=== PATIENT | male | born 1970 | race African-American/Black ===

== ENCOUNTER 2018-08-15 03:47 | Inpatient (IN) | payer OTHER ==
[~2018-08-15] VITALS: Ht 167.6 cm; Wt 121.6 kg
[2018-08-15] MEDS ORDERED: PILOCARPINE HCL 2% OPHTH DROPS 15ML RIGHTEYE STA (05:24)
[2018-08-15] MEDS ORDERED: TIMOLOL MALEATE 0.5% OPHTH DROPS 5ML RIGHTEYE STA (05:24)
[2018-08-15] MEDS ORDERED: OXYCODONE HCL/ACETAMINOPHEN 5/325MG TABLET PO ONE (05:45)
[2018-08-15 05:48] LABS: BASOPHILS % 0.7 % (0.0-2.0); EOSINOPHILS % 4.3 % (0.0-5.0); HEMATOCRIT. 39.4 % (42.0-52.0); HEMOGLOBIN. 12.9 g/dL (14.0-18.0); LYMPHOCYTES % 13.3 % (20.0-50.0); MEAN CORPUSCULAR HEMOGLOBIN 27.6 pg (28.0-32.0); MEAN CORPUSCULAR VOLUME 83.9 fL (80.0-94.0); MEAN PLATELET VOLUME 7.9 fl (7.4-10.4); MONOCYTES % 7.1 % (2.0-8.0); NEUTROPHILS % 74.6 % (40.0-76.0); PLATELET 308 x1000/uL (130-400); RED BLOOD CELL COUNT 4.69 mill/uL (4.7-6.1); RED CELL DISTRIBUTION WIDTH 15.3 % (11.6-14.6)
[2018-08-15 05:50] LABS: CHLORIDE 103 mEq/L (98-107)
[2018-08-15] MEDS ORDERED: ACETAZOLAMIDE SODIUM 500MG/VIAL IV ONE (06:15)
[2018-08-15] MEDS ORDERED: HYDRALAZINE 20MG/ML VIAL IV ONE (08:30)
[2018-08-15] MEDS ORDERED: MORPHINE SULFATE 2 MG/ML CPJ (NOT FOR IM USE) IV PRN (08:45)
[2018-08-15] MEDS ORDERED: GUAIFENESIN 200MG/10ML SUGAR FREE UDC PO PRN (08:45)
[2018-08-15] MEDS ORDERED: DOCUSATE SODIUM 100MG CAPSULE PO PRN (08:45)
[2018-08-15] MEDS ORDERED: DIPHENHYDRAMINE 50MG/ML VIAL IV PRN (08:45)
[2018-08-15] MEDS ORDERED: IPRATROPIUM/ALBUTEROL 0.5-3(2.5)MG/3ML NEB INH PRN (08:45)
[2018-08-15] MEDS ORDERED: LORAZEPAM 2MG/ML CPJ IV PRN (08:45)
[2018-08-15] MEDS ORDERED: ONDANSETRON HCL 4MG/2ML INJ IV PRN (08:45)
[2018-08-15] MEDS ORDERED: NA PHOS,M-B/NA PHOS,DI-BA ENEMA 118ML PR PRN (08:45)
[2018-08-15] MEDS ORDERED: MAGNESIUM/ALUMINUM HYDROXIDE/SIMETHICONE 30ML UDC PO PRN (08:45)
[2018-08-15 12:15] VITALS: BP 185/109
[2018-08-15 12:20] VITALS: BP 185/109
[2018-08-15 12:44] LABS: PHOSPHORUS 4.7 mg/dL (2.5-4.9)
[2018-08-15] MEDS: CLONIDINE 0.1MG TABLET PO PRN (13:23)
[2018-08-15 14:00] VITALS: BP 176/96
[2018-08-15] MEDS: SODIUM CHLORIDE 0.45% 1,000 ML IV SCH (14:57)
[2018-08-15 16:23] VITALS: BP 126/70
[2018-08-15 20:00] VITALS: BP 150/74
[2018-08-15 20:12] LABS: CLARITY URINE CLEAR (CLEAR); COLOR URINE YELLOW (YELLOW); KETONES URINE NEGATIVE (NEGATIVE); LEUKOCYTE ESTERASE URINE NEGATIVE (NEGATIVE); NITRITE URINE NEGATIVE (NEGATIVE); OCCULT BLOOD URINE NEGATIVE (NEGATIVE); PH URINE 7.5 (4.5-8.0); PROTEIN URINE 1+ (NEGATIVE); SPECIFIC GRAVITY URINE 1.008 (1.005-1.030); UROBILINOGEN URINE 0.2 E.U./dL (0.2-1.0)
[2018-08-15] MEDS: HYDROCODONE/ACETAMINOPHEN 5/325MG TABLET PO PRN (21:47)
[2018-08-16] VITALS (7 sets, daily range): BP systolic 129–224; BP diastolic 63–130
[2018-08-16] MEDS: CLONIDINE 0.1MG TABLET PO PRN ×3 (00:24→20:14)
[2018-08-16] MEDS: SODIUM CHLORIDE 0.45% 1,000 ML IV SCH (00:24)
[2018-08-16 06:15] LABS: BASOPHILS % 0.8 % (0.0-2.0); EOSINOPHILS % 4.2 % (0.0-5.0); HEMATOCRIT. 38.3 % (42.0-52.0); HEMOGLOBIN. 12.3 g/dL (14.0-18.0); LYMPHOCYTES % 17.8 % (20.0-50.0); MEAN CORPUSCULAR HEMOGLOBIN 27.4 pg (28.0-32.0); MEAN CORPUSCULAR VOLUME 85.6 fL (80.0-94.0); MEAN PLATELET VOLUME 8.1 fl (7.4-10.4); MONOCYTES % 9.1 % (2.0-8.0); NEUTROPHILS % 68.1 % (40.0-76.0); PLATELET 305 x1000/uL (130-400); RED BLOOD CELL COUNT 4.48 mill/uL (4.7-6.1); RED CELL DISTRIBUTION WIDTH 15.7 % (11.6-14.6)
[2018-08-16 06:48] LABS: CHLORIDE 106 mEq/L (98-107)
[2018-08-16 06:54] LABS: HDL CHOLESTEROL 38 mg/dL (40-59); LDL CHOLESTEROL 130 mg/dL (5-100)
[2018-08-16] MEDS: HYDROCODONE/ACETAMINOPHEN 5/325MG TABLET PO PRN ×2 (10:42→17:03)
[2018-08-16] MEDS: AMLODIPINE 5MG TABLET PO SCH ×2 (10:42→21:52)
[2018-08-16 13:36] LABS: CREATINE KINASE 103 IU/L (39-308)
[2018-08-16] MEDS: MORPHINE SULFATE 4 MG/ML CPJ (NOT FOR IM USE) IV PRN ×2 (14:55→20:11)
[2018-08-16] MEDS: HYDRALAZINE 20MG/ML VIAL IV PRN ×2 (15:44→23:52)
[2018-08-16] MEDS: CLONIDINE 0.1MG TABLET PO SCH (21:52)
[2018-08-17] VITALS (12 sets, daily range): BP systolic 141–193; BP diastolic 53–110
[2018-08-17] MEDS: HYDROCODONE/ACETAMINOPHEN 5/325MG TABLET PO PRN ×4 (01:47→20:50)
[2018-08-17 06:48] LABS: BASOPHILS % 0.7 % (0.0-2.0); EOSINOPHILS % 0.4 % (0.0-5.0); HEMATOCRIT. 39.3 % (42.0-52.0); HEMOGLOBIN. 12.9 g/dL (14.0-18.0); LYMPHOCYTES % 8.6 % (20.0-50.0); MEAN CORPUSCULAR HEMOGLOBIN 27.6 pg (28.0-32.0); MEAN CORPUSCULAR VOLUME 84.2 fL (80.0-94.0); MONOCYTES % 6.7 % (2.0-8.0); NEUTROPHILS % 83.6 % (40.0-76.0); PLATELET 339 x1000/uL (130-400); RED BLOOD CELL COUNT 4.67 mill/uL (4.7-6.1); RED CELL DISTRIBUTION WIDTH 15.6 % (11.6-14.6)
[2018-08-17] MEDS: CLONIDINE 0.1MG TABLET PO SCH ×3 (06:56→21:48)
[2018-08-17] MEDS: AMLODIPINE 5MG TABLET PO SCH ×2 (08:17→21:47)
[2018-08-17] MEDS: SODIUM CHLORIDE 0.45% 1,000 ML IV SCH ×2 (09:00→10:42)
[2018-08-17] MEDS: HYDRALAZINE 20MG/ML VIAL IV PRN ×2 (10:38→22:14)
[2018-08-17] MEDS: CLONIDINE 0.1MG TABLET PO PRN (18:34)
[2018-08-17] MEDS ORDERED: HYDROMORPHONE HCL/PF 2MG/ML CPJ IM PRN (21:00)
[2018-08-17] MEDS: TIMOLOL MALEATE 0.5% OPHTH DROPS 5ML RIGHTEYE SCH (21:49)
[2018-08-17] MEDS: PILOCARPINE HCL 2% OPHTH DROPS 15ML RIGHTEYE SCH (21:50)
[2018-08-17] MEDS ORDERED: ACETAZOLAMIDE SODIUM 500MG/VIAL IV NR (22:00)
[2018-08-17] MEDS: LATANOPROST 0.005% OPHTH DROPS 2.5ML RIGHTEYE SCH (22:58)
[2018-08-18] VITALS (12 sets, daily range): BP systolic 126–193; BP diastolic 76–105
[2018-08-18] MEDS: SODIUM CHLORIDE 0.45% 1,000 ML IV SCH ×2 (00:59→15:28)
[2018-08-18] MEDS: PILOCARPINE HCL 2% OPHTH DROPS 15ML RIGHTEYE SCH ×3 (06:11→22:10)
[2018-08-18] MEDS: CLONIDINE 0.1MG TABLET PO SCH ×2 (06:11→14:19)
[2018-08-18 07:16] LABS: BASOPHILS % 0.7 % (0.0-2.0); EOSINOPHILS % 2.7 % (0.0-5.0); HEMATOCRIT. 37.8 % (42.0-52.0); HEMOGLOBIN. 12.3 g/dL (14.0-18.0); LYMPHOCYTES % 15.3 % (20.0-50.0); MEAN CORPUSCULAR HEMOGLOBIN 27.6 pg (28.0-32.0); MEAN CORPUSCULAR VOLUME 84.8 fL (80.0-94.0); MEAN PLATELET VOLUME 8.1 fl (7.4-10.4); MONOCYTES % 10.9 % (2.0-8.0); NEUTROPHILS % 70.4 % (40.0-76.0); PLATELET 320 x1000/uL (130-400); RED BLOOD CELL COUNT 4.46 mill/uL (4.7-6.1); RED CELL DISTRIBUTION WIDTH 15.5 % (11.6-14.6)
[2018-08-18] MEDS: TIMOLOL MALEATE 0.5% OPHTH DROPS 5ML RIGHTEYE SCH ×2 (08:44→21:17)
[2018-08-18] MEDS: AMLODIPINE 5MG TABLET PO SCH ×2 (08:45→21:16)
[2018-08-18 09:45] LABS: PHOSPHORUS 3.2 mg/dL (2.5-4.9)
[2018-08-18] MEDS: CLONIDINE 0.1MG TABLET PO PRN ×2 (11:15→19:07)
[2018-08-18] MEDS: HYDRALAZINE 20MG/ML VIAL IV PRN (17:40)
[2018-08-18] MEDS: CLONIDINE 0.2MG TABLET PO SCH (21:16)
[2018-08-18] MEDS: LATANOPROST 0.005% OPHTH DROPS 2.5ML RIGHTEYE SCH (21:17)
[2018-08-19] VITALS (11 sets, daily range): BP systolic 144–182; BP diastolic 72–111
[2018-08-19] MEDS ORDERED: ACETAZOLAMIDE SODIUM 500MG/VIAL IV NR
[2018-08-19] MEDS: CLONIDINE 0.2MG TABLET PO SCH ×3 (06:15→22:15)
[2018-08-19] MEDS: PILOCARPINE HCL 2% OPHTH DROPS 15ML RIGHTEYE SCH ×3 (06:15→22:00)
[2018-08-19] MEDS: HYDRALAZINE 20MG/ML VIAL IV PRN (06:42)
[2018-08-19] MEDS: AMLODIPINE 5MG TABLET PO SCH ×2 (09:00→21:38)
[2018-08-19] MEDS: TIMOLOL MALEATE 0.5% OPHTH DROPS 5ML RIGHTEYE SCH ×2 (09:42→21:00)
[2018-08-19] MEDS ORDERED: TRIAMCINOLONE ACETONIDE 40MG/ML 1ML VIAL ONE (10:15)
[2018-08-19] MEDS ORDERED: PROPOFOL 200MG/20ML VIAL IV ONE (11:22)
[2018-08-19] MEDS ORDERED: MIDAZOLAM HCL 2 MG/2 ML VIAL ONE (11:23)
[2018-08-19] MEDS ORDERED: FENTANYL CITRATE/PF 50MCG/ML 2ML VIAL ONE (11:23)
[2018-08-19] MEDS ORDERED: LABETALOL HCL 5MG/ML VIAL 20ML IV ONE (12:18)
[2018-08-19] MEDS ORDERED: HYDRALAZINE 20MG/ML VIAL ONE (12:18)
[2018-08-19] MEDS ORDERED: LIDOCAINE HCL/PF 1% 10 MG/ML 5ML VIAL ONE (12:18)
[2018-08-19] MEDS: SODIUM CHLORIDE 0.45% 1,000 ML IV SCH (12:42)
[2018-08-19] MEDS ORDERED: ONDANSETRON HCL 4MG/2ML INJ IV NR (13:30)
[2018-08-19] MEDS ORDERED: FENTANYL CITRATE/PF 50MCG/ML 2ML VIAL IV PRN (13:30)
[2018-08-19] MEDS: ACETAMINOPHEN 325MG TABLET PO PRN ×2 (14:26→22:16)
[2018-08-19] MEDS: LATANOPROST 0.005% OPHTH DROPS 2.5ML RIGHTEYE SCH (21:00)
[2018-08-20] VITALS: BP 181/119
[2018-08-20] MEDS: CLONIDINE 0.1MG TABLET PO PRN (00:23)
[2018-08-20 02:00] VITALS: BP 156/94
[2018-08-20 04:00] VITALS: BP 153/96
[2018-08-20 06:00] VITALS: BP 179/99
[2018-08-20] MEDS: PILOCARPINE HCL 2% OPHTH DROPS 15ML RIGHTEYE SCH (06:00)
[2018-08-20] MEDS: CLONIDINE 0.2MG TABLET PO SCH (06:11)
[2018-08-20 07:16] LABS: BASOPHILS % 0.9 % (0.0-2.0); EOSINOPHILS % 3.7 % (0.0-5.0); HEMATOCRIT. 40.6 % (42.0-52.0); HEMOGLOBIN. 12.9 g/dL (14.0-18.0); LYMPHOCYTES % 13.1 % (20.0-50.0); MEAN CORPUSCULAR HEMOGLOBIN 26.9 pg (28.0-32.0); MEAN CORPUSCULAR VOLUME 84.7 fL (80.0-94.0); MEAN PLATELET VOLUME 8.1 fl (7.4-10.4); MONOCYTES % 9.7 % (2.0-8.0); NEUTROPHILS % 72.6 % (40.0-76.0); PLATELET 327 x1000/uL (130-400); RED BLOOD CELL COUNT 4.79 mill/uL (4.7-6.1)
[2018-08-20 07:55] VITALS: BP 175/110
[2018-08-20] MEDS: TIMOLOL MALEATE 0.5% OPHTH DROPS 5ML RIGHTEYE SCH (08:04)
[2018-08-20] MEDS: AMLODIPINE 5MG TABLET PO SCH (08:24)
== END 2018-08-20 12:11 | disposition home or self-care (01) | DRG 116 ==
LOC: ER 03:47 → 8WST 06:04 → EDBEDREQ 06:28 → EDBEDREQTM 06:28 → ENRESERV 11:01 → 3WST 08-16 16:30
PROVIDERS: ADMIT Internal Medicine; ATTEND Internal Medicine
PROC: 3E0C3GC Introduction of Other Therapeutic Substance into Eye, Percutaneous Approach (ICD-10-PCS; 2018-08-19)
PROC: 08123J4 Bypass Right Anterior Chamber to Sclera with Synthetic Substitute, Percutaneous Approach (ICD-10-PCS; principal; 2018-08-19 11:00)
DX: H40.9 Unspecified glaucoma (principal); N17.0 Acute kidney failure with tubular necrosis; I16.1 Hypertensive emergency; N18.4 Chronic kidney disease, stage 4 (severe); H43.11 Vitreous hemorrhage, right eye; E86.0 Dehydration; H25.13 Age-related nuclear cataract, bilateral; H21.1X1 Other vascular disorders of iris and ciliary body, right eye; H54.61 Unqualified visual loss, right eye, normal vision left eye; I12.9 Hypertensive chronic kidney disease with stage 1 through stage 4 chronic kidney disease, or unspecified chronic kidney disease; Z87.891 Personal history of nicotine dependence
CPT/HCPCS: 36415; 76770; 80048; 80061; 82550; 82575; 82962; 83036; 83735; 84100; 84484; 96374; 96375; 99285; J0360; J1120; J1200; J2060; J2250; J2270; J2405; J2704; J3010; J3301; J3490

== ENCOUNTER 2021-07-31 15:14 | Emergency (ER) | payer OTHER ==
[~2021-07-31] VITALS: Ht 167.6 cm; Wt 121.0 kg
[~2021-07-31 15:14] MED LIST: CALC667C PO; CLON0.2T PO; CLON0.2T12 PO; DOCU-150 PO; FERR325T23 PO; FURO20TA4 PO; HYDR100T26 PO; LOSA50TA3 PO; MINO10TA MT; NIFE-32 MT
[2021-07-31 19:23] LABS: HEMATOCRIT. 26.8 % (42.0-52.0); HEMOGLOBIN. 8.7 g/dL (14.0-18.0); MEAN CORPUSCULAR HEMOGLOBIN 30.7 pg (28.0-32.0); MEAN CORPUSCULAR VOLUME 95.1 fL (80.0-94.0); MEAN PLATELET VOLUME 7.3 fl (7.4-10.4); PLATELET 305 x1000/uL (130-400); RED BLOOD CELL COUNT 2.82 mill/uL (4.7-6.1); RED CELL DISTRIBUTION WIDTH 14.8 % (11.6-14.6)
[2021-07-31 19:27] LABS: CHLORIDE 103 mEq/L (98-107)
[2021-07-31 20:03] LABS: PLATELET ESTIMATE NORMAL
[2021-07-31 21:13] LABS: HEPATITIS B SURFACE ANTIGEN NEGATIVE
[2021-07-31] MEDS ORDERED: CLONIDINE 0.2MG TABLET PO ONE (21:15)
[2021-07-31 21:30] VITALS: BP 186/67
== END 2021-07-31 21:30 | disposition left against medical advice (07) ==
LOC: ER 15:14 → EDBEDREQ 19:13 → ER 21:30 → CANBEDREQ 08-01 01:42
DX: I12.0 Hypertensive chronic kidney disease with stage 5 chronic kidney disease or end stage renal disease (principal); N18.6 End stage renal disease; Z79.899 Other long term (current) drug therapy; Z98.890 Other specified postprocedural states
CPT/HCPCS: 36415; 71045; 80053; 85025; 86705; 86709; 86803; 87340; 99284

== ENCOUNTER 2023-06-02 13:48 | Emergency (ER) | payer MEDICAID, OTHER ==
[2023-06-02] VITALS (10 sets, daily range): BP systolic 140–192; BP diastolic 61–100; PULSE 58–92; RESP 18–36; TEMP 98.2–98.4; O2SAT 80
[~2023-06-02] VITALS: Ht 175.3 cm; Wt 100.0 kg
[~2023-06-02 13:48] MED LIST changes: +LOSA-413 PO; -LOSA50TA3 PO
[2023-06-02 14:17] LABS: BASOPHILS % 1.3 % (0.0-2.0); DIFFERENTIAL COMMENT 0; EOSINOPHILS % 1.9 % (0.0-5.0); HEMATOCRIT. 33.6 % (42.0-52.0); HEMOGLOBIN. 10.2 g/dL (14.0-18.0); LYMPHOCYTES % 8.6 % (20.0-50.0); MEAN CORPUSCULAR HEMOGLOBIN 26.9 pg (28.0-32.0); MEAN CORPUSCULAR HGB CONC 30.3 g/dL (31.0-37.0); MEAN CORPUSCULAR VOLUME 88.8 fL (80.0-94.0); MEAN PLATELET VOLUME 7.1 fl (7.4-10.4); MONOCYTES % 4.7 % (2.0-8.0); NEUTROPHILS % 83.5 % (40.0-76.0); PLATELET 280 x1000/uL (130-400); RED BLOOD CELL COUNT 3.78 mill/uL (4.7-6.1); RED CELL DISTRIBUTION WIDTH 20.7 % (11.6-14.6); WHITE BLOOD COUNT 11.6 x1000/uL (4.5-11.0)
[2023-06-02 14:23] LABS: CHLORIDE 100 mEq/L (98-107); INDEX HEMOLYSI 3 (1-3); INDEX ICTERIC 1 (1-4); INDEX LIPEMIC 1 (1-3); SODIUM 132 mEq/L (136-145)
[2023-06-02 14:34] LABS: ALANINE AMINOTRANSFERASE 15 IU/L (13-61); ALBUMIN 3.7 g/dL (3.4-5.0); ASPARTATE AMINOTRANSFERASE 18 IU/L (15-37); BILIRUBIN TOTAL 0.4 mg/dL (0.1-1.0); CALCIUM 8.5 mg/dL (8.5-10.1); CARBON DIOXIDE 21 mEq/L (21-32); GLUCOSE 181 mg/dL (70-105); NT PRO B-TYPE NATRIURETIC PEP 8607 pg/mL (5-125); PROTEIN TOTAL 8.5 g/dL (6.0-8.3); TROPONIN I HIGH SENSITIVITY 41 ng/L (<78)
[2023-06-02 14:50] LABS: CREATININE 18.4 mg/dL (0.6-1.3); POTASSIUM 6.7 mEq/L (3.5-5.1); UREA NITROGEN BLOOD 94 mg/dL (7-21)
[2023-06-02] MEDS ORDERED: LORAZEPAM 2MG/ML CPJ IV PRN (16:15)
[2023-06-02] MEDS ORDERED: DOCUSATE SODIUM 100MG CAPSULE PO PRN (16:15)
[2023-06-02] MEDS ORDERED: IPRATROPIUM/ALBUTEROL 0.5-3(2.5)MG/3ML NEB HHN PRN (16:15)
[2023-06-02] MEDS ORDERED: CLONIDINE 0.1MG TABLET PO PRN (16:15)
[2023-06-02] MEDS ORDERED: ONDANSETRON HCL 4MG/2ML INJ IV PRN (16:15)
[2023-06-02] MEDS ORDERED: ACETAMINOPHEN 325MG TABLET PO PRN ×2 (16:15)
[2023-06-02] MEDS ORDERED: METHYLPREDNISOLONE SOD SUCC 125MG/2ML (ACT-O-VIAL) IV ONE (16:30)
[2023-06-02] MEDS ORDERED: CLONIDINE 0.2MG TABLET PO SCH (16:36)
[2023-06-02] MEDS ORDERED: SODIUM BICARBONATE 8.4% 1 MEQ/ML 50ML SYR IV NR (16:45)
[2023-06-02] MEDS ORDERED: INSULIN REGULAR (HUMULIN R) 300UNITS/3ML VIAL IV NR (16:45)
[2023-06-02] MEDS ORDERED: SODIUM POLYSTYRENE SULFONATE 15 G/60 ML BOT PO NR (16:45)
[2023-06-02] MEDS ORDERED: DEXTROSE 50% WATER 50ML SYRINGE IV NR (16:45)
[2023-06-02] MEDS ORDERED: METHYLPREDNISOLONE SOD SUCC 125MG VIAL IV NR (16:45)
[2023-06-02 16:50] LABS: PHOSPHORUS 7.9 mg/dL (2.5-4.9)
[2023-06-02 16:54] LABS: TROPONIN I HIGH SENSITIVITY 40 ng/L (<78)
[2023-06-02] MEDS ORDERED: FERROUS SULFATE 325MG TABLET PO SCH (17:00)
[2023-06-02] MEDS ORDERED: CALCIUM ACETATE 667MG CAPSULE PO SCH (17:00)
[2023-06-02] MEDS ORDERED: MINOXIDIL 10MG TABLET PO SCH (17:00)
[2023-06-02] MEDS ORDERED: AZITHROMYCIN 500MG/250ML 250 ML IV NR (17:00)
[2023-06-02] MEDS ORDERED: IPRATROPIUM/ALBUTEROL 0.5-3(2.5)MG/3ML NEB HHN SCH (17:00)
[2023-06-02] MEDS ORDERED: CALCIUM CHLORIDE 1,000 MG in DEXT 5% WATER 90 ML IV NR (17:00)
[2023-06-02] MEDS ORDERED: FAMOTIDINE 20MG TABLET PO SCH ×2 (17:00→21:00)
[2023-06-02] MEDS ORDERED: ENOXAPARIN 40MG/0.4ML SYR SUBCUT SCH (17:00)
[2023-06-02 17:07] LABS: INDEX HEMOLYSI 1 (1-3); INDEX ICTERIC 1 (1-4); INDEX LIPEMIC 1 (1-3)
[2023-06-02 17:11] LABS: IRON 28 ug/dL (50-175); TOTAL IRON BINDING CAPACITY 263 ug/dL (250-450)
[2023-06-02 17:25] LABS: HEPATITIS B SURFACE ANTIGEN NEGATIVE
[2023-06-02] MEDS ORDERED: FUROSEMIDE 40MG/4ML VIAL IVP NR (17:30)
[2023-06-02] MEDS ORDERED: DEXTROSE 50% WATER 50ML SYRINGE IV PRN (17:45)
[2023-06-02 17:53] LABS: HEPATITIS B CORE AB IGM NEGATIVE; HEPATITIS C VIR.AB 0.15 INDEXVAL (0.00-0.80)
[2023-06-02 17:55] LABS: HEPATITIS A AB IGM NEGATIVE (NEGATIVE)
[2023-06-02 17:58] LABS: VITAMIN B12 SERUM 412 pg/mL (211-911)
[2023-06-02] MEDS ORDERED: INSULIN LISPRO 100 UNITS/ML SUBCUT SCH (18:20)
[2023-06-02 19:27] LABS: PROSTRATE SPECIFIC AG TOTAL 2.06 ng/mL (0.0-4.0)
[2023-06-02] MEDS ORDERED: BLOOD SUGAR DIAGNOSTIC STRIP TEST SCH (21:00)
[2023-06-02] MEDS ORDERED: LOSARTAN POTASSIUM 50 MG TABLET PO SCH (21:00)
[2023-06-02] MEDS ORDERED: HYDRALAZINE HCL 100MG TABLET PO SCH (22:00)
[2023-06-02] MEDS ORDERED: METHYLPREDNISOLONE SOD SUCC 40MG VIAL IV SCH (23:30)
[2023-06-03] MEDS ORDERED: NIFEDIPINE XL 60MG TAB PO SCH (09:00)
[2023-06-03] MEDS ORDERED: AZITHROMYCIN 500 MG in DEXT 5% WATER 250 ML IV SCH (17:00)
== END 2023-06-02 19:29 | disposition left against medical advice (07) ==
LOC: ER 13:50 → EDBEDREQTM 17:16 → EDBEDREQSVC 17:16 → EDBEDREQ 17:16 → EDBEDREQSVC 17:17 → ER 19:29 → CANBEDREQ 06-03 00:01
DX: I12.0 Hypertensive chronic kidney disease with stage 5 chronic kidney disease or end stage renal disease (principal); J81.0 Acute pulmonary edema; N18.6 End stage renal disease; R06.82 Tachypnea, not elsewhere classified; R00.0 Tachycardia, unspecified; E87.5 Hyperkalemia; I51.7 Cardiomegaly; J81.1 Chronic pulmonary edema; E11.22 Type 2 diabetes mellitus with diabetic chronic kidney disease; E87.70 Fluid overload, unspecified; Z99.2 Dependence on renal dialysis; Z79.899 Other long term (current) drug therapy
CPT/HCPCS: 80053; 82607; 82746; 83036; 83880; 83540; 83550; 83605; 83690; 83735; 84100; 85025; 85379; 87340; 86803; 84153; 84484; 36415; 86705; 86709; 84145; 71045; 94660; 96374; 96375; 99291; J1940; J2930; Z7610; 90935; J0456; J3490; J7060; G0103

== ENCOUNTER 2023-09-22 09:56 | Emergency (ER) | payer OTHER ==
[~2023-09-22] VITALS: Ht 177.8 cm; Wt 96.0 kg
[2023-09-22] VITALS (10 sets, daily range): BP systolic 168–236; BP diastolic 98–146; PULSE 82–100; RESP 12–33; TEMP 98.5; O2SAT 100
[2023-09-22] MEDS ORDERED: NITROGLYCERIN 0.4MG TABLET SL SL ONE (10:00)
[2023-09-22 10:59] LABS: HEMOGLOBIN. 9.1 g/dL (14.0-18.0); MEAN CORPUSCULAR HEMOGLOBIN 27.7 pg (28.0-32.0); MEAN CORPUSCULAR HGB CONC 31.2 g/dL (31.0-37.0); MEAN CORPUSCULAR VOLUME 88.8 fL (80.0-94.0); MEAN PLATELET VOLUME 7.5 fl (7.4-10.4); PLATELET 246 x1000/uL (130-400); RED BLOOD CELL COUNT 3.27 mill/uL (4.7-6.1); RED CELL DISTRIBUTION WIDTH 21.6 % (11.6-14.6); WHITE BLOOD COUNT 10.6 x1000/uL (4.5-11.0)
[2023-09-22 11:08] LABS: DIFFERENTIAL COMMENT 1
[2023-09-22 11:27] LABS: ALANINE AMINOTRANSFERASE < 7 IU/L (10-49); ALBUMIN 4.4 g/dL (3.2-4.8); BILIRUBIN TOTAL 0.4 mg/dL (0.1-1.0); CALCIUM 8.9 mg/dL (8.7-10.4); CARBON DIOXIDE 21 mEq/L (21-32); CHLORIDE 102 mEq/L (98-107); GLUCOSE 108 mg/dL (70-105); PROTEIN TOTAL 7.5 g/dL (6.0-8.3); SODIUM 137 mEq/L (136-145); UREA NITROGEN BLOOD 79 mg/dL (9-23)
[2023-09-22 11:46] LABS: ANISOCYTOSIS 2+; PLATELET ESTIMATE NORMAL
[2023-09-22 12:07] LABS: ASPARTATE AMINOTRANSFERASE < 8 IU/L (<34)
[2023-09-22 12:09] LABS: CREATININE 17.2 mg/dL (0.6-1.3); TROPONIN I HIGH SENSITIVITY 152 ng/L (3.0-53)
[2023-09-22] MEDS ORDERED: FUROSEMIDE 100MG/10ML VIAL IV STA (12:11)
[2023-09-22] MEDS ORDERED: SODIUM BICARBONATE 8.4% 1 MEQ/ML 50ML SYR IV ONE (12:15)
[2023-09-22] MEDS ORDERED: CALCIUM CHLORIDE 1GM/10ML SYR IV ONE (12:15)
[2023-09-22] MEDS ORDERED: DEXTROSE 50% WATER 50ML SYRINGE IV ONE (12:15)
[2023-09-22] MEDS ORDERED: ALBUTEROL (0.083%) 2.5MG/3ML NEB HHN ONE (12:15)
[2023-09-22] MEDS ORDERED: INSULIN REGULAR (HUMULIN R) 300UNITS/3ML VIAL IV ONE (12:15)
[2023-09-22 12:16] LABS: BG BASE EXCESS -7.4 mmol/L (-2.0-2.0); BG CARBOXYHEMOGLOBIN 0.1 % (0.5-1.5); BG DEOXYHEMOGLOBIN 0.2 % (0.0-5.0); BG FRACTION INSPIRED OXYGEN 100; BG HCO3 ACT 19.4 mmol/L (22.0-26.0); BG METHEMOGLOBIN 0.4 % (0.0-1.5); BG OXYGEN SATURATION 99.8 % (92.0-98.5); BG OXYHEMOGLOBIN 99.3 % (94.0-97.0); BG PCO2 44.7 mmHg (35.0-45.0); BG PH 7.255 (7.350-7.450); BG PO2 436.1 mmHg (75.0-100.0); BG SAMPLE SITE RIGHT RADIAL; BG TOTAL HEMOGLOBIN 10.1 g/dL (12.0-18.0); BG VENT MODE MASK - BIPAP
[2023-09-22] MEDS ORDERED: SODIUM POLYSTYRENE SULFONATE 15 G/60 ML BOT PO NR (13:30)
[2023-09-22] MEDS ORDERED: HYDRALAZINE HCL 100MG TABLET PO NR (13:30)
[2023-09-22] MEDS ORDERED: GUAIFENESIN 200MG/10ML SUGAR FREE UDC PO PRN (13:30)
[2023-09-22] MEDS ORDERED: DIPHENHYDRAMINE 50MG/ML VIAL IV PRN (13:30)
[2023-09-22] MEDS ORDERED: IPRATROPIUM/ALBUTEROL 0.5-3(2.5)MG/3ML NEB HHN PRN (13:30)
[2023-09-22] MEDS ORDERED: CLONIDINE 0.1MG TABLET PO PRN (13:30)
[2023-09-22] MEDS ORDERED: ACETAMINOPHEN 325MG TABLET PO PRN (13:30)
[2023-09-22] MEDS ORDERED: DOCUSATE SODIUM 100MG CAPSULE PO PRN (13:30)
[2023-09-22] MEDS ORDERED: TRAMADOL 50MG TABLET PO PRN (13:30)
[2023-09-22] MEDS ORDERED: ONDANSETRON HCL 4MG/2ML INJ IV PRN (13:30)
[2023-09-22] MEDS ORDERED: AMLODIPINE 5MG TABLET PO SCH (13:30)
== END 2023-09-22 18:05 | disposition left against medical advice (07) ==
LOC: ER 09:56 → EDBEDREQSVC 13:34 → EDBEDREQTM 13:34 → EDBEDREQ 13:34 → ER 18:05 → CANBEDREQ 19:57
DX: R06.03 Acute respiratory distress (principal); E87.5 Hyperkalemia; E87.70 Fluid overload, unspecified; I12.0 Hypertensive chronic kidney disease with stage 5 chronic kidney disease or end stage renal disease; N18.6 End stage renal disease
CPT/HCPCS: 99285; 96374; 96375; 71045; 80053; 83880; 85025; 84484; 36415; 82805; 82375; 93005; 36600; J3490 ×2; J1940; J1815; 90935; 94660

== ENCOUNTER 2025-10-21 03:40 | Inpatient (IN) | payer MEDICAID ==
[2025-10-21] VITALS (12 sets, daily range): BP systolic 73–144; BP diastolic 30–68; PULSE 44–53; RESP 18–24; TEMP 36.5–36.7; O2SAT 95–99
[~2025-10-21] VITALS: Ht 165.1 cm; Wt 99.8 kg
[~2025-10-21 03:40] MED LIST changes: +AMLO2.5T45 MT; +CLON1TAB23 MT; -DOCU-150 PO; +DOCU-422 PO; +HYDR100T11 PO; -HYDR100T26 PO; +NIFE-33 MT
[2025-10-21 04:38] LABS: HEMATOCRIT. 30.5 % (42.0-52.0); HEMOGLOBIN. 9.5 g/dL (14.0-18.0); MEAN PLATELET VOLUME 8.2 fl (7.4-10.4); PLATELET 270 x1000/uL (130-400); RED BLOOD CELL COUNT 3.25 mill/uL (4.7-6.1); RED CELL DISTRIBUTION WIDTH 22.1 % (11.6-14.6)
[2025-10-21 04:42] LABS: INR 1.1
[2025-10-21 04:46] LABS: ETHANOL BLOOD < 10 mg/dL (<10); UREA NITROGEN BLOOD 97 mg/dL (9-23)
[2025-10-21 04:47] LABS: PROTEIN TOTAL 7.6 g/dL (6.0-8.3)
[2025-10-21 04:48] LABS: BILIRUBIN DIRECT 0.1 mg/dL (<=3.0); BILIRUBIN TOTAL 0.3 mg/dL (0.1-1.0)
[2025-10-21 04:50] LABS: LYMPHOCYTES % MANUAL 7.0 % (20.0-50.0); MONOCYTES % MANUAL 4.0 % (2.0-8.0); NEUTROPHILS % MANUAL 89.0 % (45.0-75.0)
[2025-10-21 04:51] LABS: PLATELET ESTIMATE NORMAL; TROPONIN I HIGH SENSITIVITY 78 ng/L (3.0-53)
[2025-10-21 04:52] LABS: ASPARTATE AMINOTRANSFERASE < 8 IU/L (<34); CREATININE 18.5 mg/dL (0.6-1.3)
[2025-10-21] MEDS ORDERED: ONDANSETRON HCL 4MG/2ML INJ IV PRN (07:30)
[2025-10-21] MEDS ORDERED: IPRATROPIUM/ALBUTEROL 0.5-3(2.5)MG/3ML NEB HHN PRN (07:30)
[2025-10-21] MEDS ORDERED: DOCUSATE SODIUM 100MG CAPSULE PO PRN (07:30)
[2025-10-21] MEDS ORDERED: DILTIAZEM HCL 60MG TABLET PO PRN (07:30)
[2025-10-21] MEDS ORDERED: GUAIFENESIN 200MG/10ML SUGAR FREE UDC PO PRN (07:30)
[2025-10-21] MEDS ORDERED: DEXTROSE 50% WATER 50ML SYRINGE IV PRN (07:30)
[2025-10-21] MEDS ORDERED: ACETAMINOPHEN 325MG TABLET PO PRN ×2 (07:30)
[2025-10-21] MEDS ORDERED: CLONIDINE 0.1MG TABLET PO PRN (07:30)
[2025-10-21 08:00] LABS: HEPATITIS A AB IGM NEGATIVE (Negative)
[2025-10-21 08:01] LABS: HEPATITIS B CORE AB IGM NEGATIVE (Negative); HEPATITIS C AB NON REACTIVE (Neg) (Negative)
[2025-10-21] MEDS ORDERED: LIDOCAINE HCL 1% 10 MG/ML 10ML VIAL ONE ×2 (08:23→13:01)
[2025-10-21] MEDS ORDERED: HEPARIN 1000 UNITS/ML 10ML ONE (08:47)
[2025-10-21] MEDS: ENOXAPARIN 100MG/ML SYR SUBCUT SCH ×2 (09:00→13:21)
[2025-10-21] MEDS ORDERED: HYDRALAZINE 20MG/ML VIAL IV PRN (12:15)
[2025-10-21] MEDS ORDERED: ATORVASTATIN CALCIUM 20MG TABLET PO SCH (21:00)
== END 2025-10-21 17:04 | disposition left against medical advice (07) | DRG 425 ==
LOC: ER 04:35 → 8WST 05:22 → EDBEDREQTM 05:37 → EDBEDREQ 05:37
PROVIDERS: ADMIT Internal Medicine; ATTEND Internal Medicine
PROC: 06HY33Z Insertion of Infusion Device into Lower Vein, Percutaneous Approach (ICD-10-PCS; principal; 2025-10-21)
PROC: B54BZZA Ultrasonography of Right Lower Extremity Veins, Guidance (ICD-10-PCS; 2025-10-21)
PROC: 5A1D70Z Performance of Urinary Filtration, Intermittent, Less than 6 Hours Per Day (ICD-10-PCS; 2025-10-21)
DX: E87.70 Fluid overload, unspecified (principal); J96.01 Acute respiratory failure with hypoxia; G93.41 Metabolic encephalopathy; I12.0 Hypertensive chronic kidney disease with stage 5 chronic kidney disease or end stage renal disease; E87.20 Acidosis, unspecified; D63.8 Anemia in other chronic diseases classified elsewhere; I21.A1 Myocardial infarction type 2; N18.6 End stage renal disease; Z99.2 Dependence on renal dialysis; E66.01 Morbid (severe) obesity due to excess calories; E11.22 Type 2 diabetes mellitus with diabetic chronic kidney disease; E11.65 Type 2 diabetes mellitus with hyperglycemia; I48.92 Unspecified atrial flutter; G47.33 Obstructive sleep apnea (adult) (pediatric); T82.868A Thrombosis due to vascular prosthetic devices, implants and grafts, initial encounter; Z68.41 Body mass index [BMI] 40.0-44.9, adult; Y71.2 Prosthetic and other implants, materials and accessory cardiovascular devices associated with adverse incidents; I48.91 Unspecified atrial fibrillation; E78.5 Hyperlipidemia, unspecified; Z53.29 Procedure and treatment not carried out because of patient's decision for other reasons; Y92.89 Other specified places as the place of occurrence of the external cause
CPT/HCPCS: 36415; 71045; 77001; 80048; 80076; 80320; 83735; 83880; 84484; 85025; 86705; 86709; 87340; 90935; 93005; 99285; C1752; J1644; J1650; J2003; G0480